=== PATIENT | male | born 1965 | race African-American/Black ===

== ENCOUNTER 2019-03-12 18:24 | Emergency (ER) | payer OTHER | END 2019-03-12 19:01 | disposition home or self-care (01) | LOC: NAV ERS 18:24 | DX: S16.1XXA Strain of muscle, fascia and tendon at neck level, initial encounter (principal); E10.9 Type 1 diabetes mellitus without complications; X50.9XXA Other and unspecified overexertion or strenuous movements or postures, initial encounter | CPT/HCPCS: 99283 ==

== ENCOUNTER 2024-07-11 17:49 | Emergency (ER) | payer OTHER, SELFPAY ==
[2024-07-11] MEDS ORDERED: Cephalexin 250 MG CAP ONE (18:25)
[2024-07-11] MEDS ORDERED: Pantoprazole DR 40 MG TAB ONE (18:25)
[2024-07-11] MEDS ORDERED: Sucralfate 1 GM TAB ONE (18:25)
== END 2024-07-11 18:30 | disposition home or self-care (01) ==
LOC: NAV ERS 17:49
DX: K04.7 Periapical abscess without sinus (principal); R06.6 Hiccough; R03.0 Elevated blood-pressure reading, without diagnosis of hypertension; E10.9 Type 1 diabetes mellitus without complications
CPT/HCPCS: 99282

== ENCOUNTER 2024-11-03 15:47 | Emergency (ER) | payer SELFPAY ==
[2024-11-03] MEDS ORDERED: Ketorolac Tromethamine 60 MG/2 ML VIAL ONE (16:10)
[2024-11-03] MEDS ORDERED: Cyclobenzaprine 10 MG TAB ONE (16:11)
== END 2024-11-03 16:29 | disposition home or self-care (01) ==
LOC: NAV ERS 15:47
DX: S39.012A Strain of muscle, fascia and tendon of lower back, initial encounter (principal); E10.9 Type 1 diabetes mellitus without complications
CPT/HCPCS: 96372; 99283; J1885